=== PATIENT | female | born 1945 | race Caucasian/White ===

== ENCOUNTER 2017-12-10 08:15 | Day surgery (SDC) | payer MEDICARE, BC ==
[~2017-12-10] VITALS: Ht 160 cm; Wt 72.8 kg
[2017-12-10] VITALS (14 sets, daily range): BP systolic 109–147; BP diastolic 57–84
[~2017-12-10 08:15] MED LIST: ATOR20TA PO; ESOM40CA30 PO; FLUO20CA39 PO; FLUT1DIS INH; FOLI1TAB16 PO; OXYC-145 PO; SYN0.112T PO; VITAMIN B12 COMPLEX PO
[2017-12-10 08:57] LABS: BASOPHILS % (AUTO) 0.4 % (0-1); EOSINOPHILS # (AUTO) 0.2 X10'3 (0-0.9); EOSINOPHILS % (AUTO) 3.2 % (0-6); HEMATOCRIT 39.9 % (35.0-45.0); HEMOGLOBIN 13.6 g/dl (12.0-16.0); LYMPHOCYTES # (AUTO) 1.3 X10'3 (1.1-4.8); LYMPHOCYTES % (AUTO) 17.8 % (21-51); MEAN CORPUSCULAR HEMOGLOBIN 32.1 PG (27.0-31.0); MEAN CORPUSCULAR HGB CONC 34.2 % (33.0-36.5); MONOCYTES # (AUTO) 0.5 X10'3 (0-0.9); MONOCYTES % (AUTO) 7.4 % (2-12); NEUTROPHILS # (AUTO) 5.3 X10'3 (1.8-7.7); NEUTROPHILS % (AUTO) 71.2 % (42-75); PLATELET COUNT 265 X10'3 (140-440); RED BLOOD COUNT 4.25 X10'6 (4.20-5.60); RED CELL DISTRIBUTION WIDTH 17.3 % (11.5-14.5); WHITE BLOOD COUNT 7.4 X10'3 (4.5-11.0)
[2017-12-10 09:07] LABS: ALBUMIN 2.9 G/DL (3.4-5.0); ANION GAP 7 (8-16); BLOOD UREA NITROGEN 15 MG/DL (7-18); BUN/CREATININE RATIO 14.7 (6.6-38.0); CALCIUM 8.3 MG/DL (8.5-10.1); CHLORIDE 101 MMOL/L (99-107); CREATININE 1.02 MG/DL (0.40-0.90); GLUCOSE 101 MG/DL (70-104); INR 0.9 INR; POTASSIUM 4.1 MMOL/L (3.5-5.1); PROTHROMBIN TIME 9.7 SECONDS (9.0-12.0); SODIUM 136 MMOL/L (135-145); TOTAL CARBON DIOXIDE 28.2 MMOL/L (24-32); eGFR 54 ML/MIN
[2017-12-10] MEDS ORDERED: ALBU8HFA PO (09:34)
[2017-12-10] MEDS ORDERED: midazolam 2 mg/2 ml injection IV PRN (09:35)
[2017-12-10] MEDS ORDERED: LIDOcaine 1%/PF 5ML 10 MG/ML VIAL SQ ONE (09:35)
[2017-12-10] MEDS ORDERED: fentaNYL/PF 50MCG/1 ML 2ML syringe IV PRN (09:35)
[2017-12-10] MEDS ORDERED: LIDOcaine 1%/PF 5ML 10 MG/ML VIAL ONE (09:47)
[2017-12-10] MEDS ORDERED: fentaNYL/PF 50MCG/1 ML 2ML syringe ONE (09:56)
[2017-12-10] MEDS ORDERED: midazolam 2 mg/2 ml injection ONE (09:56)
== END 2017-12-10 12:35 | disposition home or self-care (01) ==
LOC: SSTAY O 08:15
PROVIDERS: ATTEND Radiology Diagnostic Radiology
DX: R91.1 Solitary pulmonary nodule (principal); J44.9 Chronic obstructive pulmonary disease, unspecified; E03.9 Hypothyroidism, unspecified; K21.9 Gastro-esophageal reflux disease without esophagitis; F17.210 Nicotine dependence, cigarettes, uncomplicated; Z96.651 Presence of right artificial knee joint; Z90.710 Acquired absence of both cervix and uterus; Z92.21 Personal history of antineoplastic chemotherapy; Z92.3 Personal history of irradiation; Z87.440 Personal history of urinary (tract) infections; Z85.118 Personal history of other malignant neoplasm of bronchus and lung; Z88.5 Allergy status to narcotic agent; Z88.6 Allergy status to analgesic agent; Z79.891 Long term (current) use of opiate analgesic; Z88.8 Allergy status to other drugs, medicaments and biological substances; Z90.49 Acquired absence of other specified parts of digestive tract; Z98.890 Other specified postprocedural states; Z79.899 Other long term (current) drug therapy; Z82.49 Family history of ischemic heart disease and other diseases of the circulatory system; Z83.3 Family history of diabetes mellitus
CPT/HCPCS: 32405; 36415; 71045; 77012; 80048; 85025; 85610; 99152; 99153; J2250; J3010; J7030; J2001

== ENCOUNTER 2018-01-28 08:18 | Day surgery (SDC) | payer MEDICARE, BC ==
[2018-01-28] VITALS (16 sets, daily range): BP systolic 102–141; BP diastolic 60–91
[~2018-01-28] VITALS: Ht 160 cm; Wt 71.4 kg
[~2018-01-28 08:18] MED LIST changes: +ALBU8HFA PO; -ATOR20TA PO; -FOLI1TAB16 PO; -VITAMIN B12 COMPLEX PO
[2018-01-28] MEDS ORDERED: normal saline 1000ml 1,000 ML IV SCH (08:40)
[2018-01-28] MEDS ORDERED: PROC10TA10 PO (09:43)
[2018-01-28] MEDS ORDERED: OXYC30TA85 PO (09:43)
[2018-01-28] MEDS ORDERED: OMEP20CA10 PO (09:43)
[2018-01-28] MEDS ORDERED: LORA0.5T PO (09:44)
[2018-01-28] MEDS ORDERED: LIDOcaine 1%/PF 5ML 10 MG/ML VIAL SQ ONE (09:45)
[2018-01-28] MEDS ORDERED: midazolam 2 mg/2 ml injection IV PRN (09:45)
[2018-01-28] MEDS ORDERED: fentaNYL/PF 50MCG/1 ML 2ML syringe IV PRN (09:45)
[2018-01-28 09:48] LABS: BASOPHILS # (AUTO) 0.1 X10'3 (0-0.2); BASOPHILS % (AUTO) 1.4 % (0-1); EOSINOPHILS # (AUTO) 0.2 X10'3 (0-0.9); LYMPHOCYTES # (AUTO) 1.5 X10'3 (1.1-4.8); LYMPHOCYTES % (AUTO) 23.3 % (21-51); MEAN CORPUSCULAR HEMOGLOBIN 31.5 PG (27.0-31.0); MEAN CORPUSCULAR HGB CONC 32.7 % (33.0-36.5); MEAN CORPUSCULAR VOLUME 96.3 FL (78-98); MEAN PLATELET VOLUME 8.1 FL (7.4-10.4); MONOCYTES # (AUTO) 0.5 X10'3 (0-0.9); MONOCYTES % (AUTO) 7.3 % (2-12); NEUTROPHILS # (AUTO) 4.2 X10'3 (1.8-7.7); PRE OP HEMATOCRIT 44.5 % (35.0-45.0); PRE OP HEMOGLOBIN 14.5 g/dL (12.0-16.0); PRE OP PLATELET COUNT 263 X10'3 (140-440); RED BLOOD COUNT 4.62 X10'6 (4.20-5.60); RED CELL DISTRIBUTION WIDTH 16.2 % (11.5-14.5)
[2018-01-28 09:55] LABS: ALBUMIN 3.6 G/DL (3.4-5.0); ANION GAP 7 (8-16); BLOOD UREA NITROGEN 14 MG/DL (7-18); BUN/CREATININE RATIO 15.9 (6.6-38.0); CALCIUM 8.6 MG/DL (8.5-10.1); CHLORIDE 100 MMOL/L (99-107); CREATININE 0.88 MG/DL (0.40-0.90); GLUCOSE 88 MG/DL (70-104); POTASSIUM 3.9 MMOL/L (3.5-5.1); SODIUM 136 MMOL/L (135-145); TOTAL CARBON DIOXIDE 28.7 MMOL/L (24-32); eGFR 64 ML/MIN
[2018-01-28] MEDS ORDERED: fentaNYL/PF 50MCG/1 ML 2ML syringe ONE ×2 (10:17→10:50)
[2018-01-28] MEDS ORDERED: midazolam 2 mg/2 ml injection ONE (10:17)
[2018-01-28] MEDS ORDERED: LIDOcaine 1% (10mg/ml) 2ml vial ONE (10:18)
== END 2018-01-28 13:30 | disposition home or self-care (01) ==
LOC: SSTAY O 08:18
PROVIDERS: ATTEND Radiology Diagnostic Radiology
DX: J84.10 Pulmonary fibrosis, unspecified (principal); J43.9 Emphysema, unspecified; G47.33 Obstructive sleep apnea (adult) (pediatric); E78.5 Hyperlipidemia, unspecified; F32.9 Major depressive disorder, single episode, unspecified; F41.8 Other specified anxiety disorders; G89.29 Other chronic pain; I25.10 Atherosclerotic heart disease of native coronary artery without angina pectoris; F17.210 Nicotine dependence, cigarettes, uncomplicated; K21.9 Gastro-esophageal reflux disease without esophagitis; M19.90 Unspecified osteoarthritis, unspecified site; M81.0 Age-related osteoporosis without current pathological fracture; E89.0 Postprocedural hypothyroidism; Z87.440 Personal history of urinary (tract) infections; Z87.01 Personal history of pneumonia (recurrent); Z96.651 Presence of right artificial knee joint; Z90.710 Acquired absence of both cervix and uterus; Z85.118 Personal history of other malignant neoplasm of bronchus and lung; Z92.21 Personal history of antineoplastic chemotherapy; Z92.3 Personal history of irradiation; Z90.49 Acquired absence of other specified parts of digestive tract; Z88.5 Allergy status to narcotic agent; Z88.6 Allergy status to analgesic agent; Z79.891 Long term (current) use of opiate analgesic; Z88.8 Allergy status to other drugs, medicaments and biological substances; Z98.890 Other specified postprocedural states; Z79.899 Other long term (current) drug therapy; Z82.49 Family history of ischemic heart disease and other diseases of the circulatory system; Z83.3 Family history of diabetes mellitus
CPT/HCPCS: 32405; 36415; 71045; 77012; 80048; 85025; 99152; 99153; J2250; J3010; J3490; J7030

== ENCOUNTER 2018-05-04 11:31 | Inpatient (IN) | payer MEDICARE, BC ==
[~2018-05-04] VITALS: Ht 157.5 cm; Wt 67.7 kg
[~2018-05-04 11:31] MED LIST changes: -ESOM40CA30 PO; +LORA0.5T PO; +OMEP20CA10 PO; -OXYC-145 PO; +OXYC30TA85 PO; +PROC10TA10 PO
[2018-05-04] MEDS ORDERED: normal saline 1000ML IV soln IVB ONE (12:10)
[2018-05-04] MEDS ORDERED: ondansetron/PF 4mg/2ml inj IV ONE (12:10)
[2018-05-04] MEDS ORDERED: HYDROmorphone 1 mg/ml syringe IV ONE ×2 (12:10→19:20)
[2018-05-04 12:37] LABS: BASOPHILS % (AUTO) 0.2 % (0-1); EOSINOPHILS % (AUTO) 0.1 % (0-6); HEMATOCRIT 47.2 % (35.0-45.0); HEMOGLOBIN 15.8 g/dl (12.0-16.0); LYMPHOCYTES # (AUTO) 0.9 X10'3 (1.1-4.8); LYMPHOCYTES % (AUTO) 9.5 % (21-51); MEAN CORPUSCULAR HEMOGLOBIN 32.5 PG (27.0-31.0); MEAN CORPUSCULAR HGB CONC 33.5 g/dL (33.0-36.5); MEAN CORPUSCULAR VOLUME 96.9 FL (78-98); MEAN PLATELET VOLUME 7.8 FL (7.4-10.4); MONOCYTES # (AUTO) 0.5 X10'3 (0-0.9); MONOCYTES % (AUTO) 4.6 % (2-12); NEUTROPHILS # (AUTO) 8.5 X10'3 (1.8-7.7); NEUTROPHILS % (AUTO) 85.6 % (42-75); PLATELET COUNT 261 X10'3 (140-440); RED BLOOD COUNT 4.87 X10'6 (4.20-5.60); RED CELL DISTRIBUTION WIDTH 15.1 % (11.5-14.5); WHITE BLOOD COUNT 9.9 X10'3 (4.5-11.0)
[2018-05-04 12:51] LABS: ALANINE AMINOTRANSFERASE 19 U/L (12-78); ALBUMIN 3.7 G/DL (3.4-5.0); ALBUMIN/GLOBULIN RATIO 1.1 (1.1-1.5); ALKALINE PHOSPHATASE 88 IU/L (46-116); ANION GAP 12 (8-16); ASPARTATE AMINO TRANSFERASE 11 U/L (10-37); BILIRUBIN,TOTAL 0.4 MG/DL (0.1-1.0); BLOOD UREA NITROGEN 15 MG/DL (7-18); BUN/CREATININE RATIO 16.1 (6.6-38.0); CALCIUM 8.5 MG/DL (8.5-10.1); CHLORIDE 100 MMOL/L (99-107); CREATININE 0.93 MG/DL (0.40-0.90); GLUCOSE 93 MG/DL (70-104); SODIUM 137 MMOL/L (135-145); TOTAL CARBON DIOXIDE 24.6 MMOL/L (24-32); TOTAL PROTEIN 7.2 G/DL (6.4-8.2); eGFR 60 ML/MIN
[2018-05-04 12:54] LABS: PARTIAL THROMBOPLASTIN TIME 29 SECONDS (22-32); PROTHROMBIN TIME 9.8 SECONDS (9.0-12.0)
[2018-05-04] MEDS ORDERED: LORazepam 2 mg/ml vial IV ONE ×2 (13:20→20:45)
[2018-05-04] MEDS ORDERED: HYDROmorphone inj. 0.5 MG/0.5 ML DISP.SYRIN IV ONE ×2 (13:20→17:15)
--- NOTE | 2018-05-04 15:51 | NUR ---
Manuela RN: patient in MRI
[2018-05-04] MEDS ORDERED: levetiracetam inj 500 MG in normal saline 100ml IV soln 95 ML IV ONE (15:55)
[2018-05-04] MEDS ORDERED: gadopentetate dimeglumine 5 mmol/10ml vial IV ONE (16:30)
[2018-05-04] MEDS ORDERED: dexamethasone sod phosphate 10mg/ml inj IV STA (18:25)
[2018-05-04] MEDS ORDERED: fentaNYL/PF 50MCG/1 ML 2ML syringe IV ONE (18:30)
[2018-05-04] MEDS ORDERED: levetiracetam inj 500 MG in normal saline 100ml IV soln 95 ML IV SCH (20:00)
[2018-05-04] MEDS ORDERED: ATOR20TA PO (20:49)
[2018-05-04] MEDS ORDERED: DEXA4TAB68 PO (20:49)
[2018-05-04] MEDS ORDERED: PROC10TA10 PO (20:49)
[2018-05-04] MEDS ORDERED: PARO20TA6 PO (20:49)
[2018-05-04] MEDS ORDERED: mag hydrox/Alum hydrox/simeth 30ml oral suspension PO PRN (21:25)
[2018-05-04] MEDS ORDERED: acetaminophen 325mg tablet PO PRN (21:25)
[2018-05-04] MEDS ORDERED: ondansetron/PF 4mg/2ml inj IV PRN (21:25)
[2018-05-04] MEDS ORDERED: magnesium hydroxide 30ml (MOM) UD suspension PO PRN (21:25)
[2018-05-04] MEDS ORDERED: SALMETEROL INH PRN (21:35)
[2018-05-04] MEDS ORDERED: FLUTICASONE INH PRN (21:35)
[2018-05-04] MEDS: normal saline 1000ml 1,000 ML IV SCH (21:39)
--- NOTE | 2018-05-04 22:20 | NUR ---
Received report from CARDING DOUBLERTAYLER Mays. Patient to follow shortly.
[2018-05-04 22:25] VITALS: BP 153/97
--- NOTE | 2018-05-04 22:25 | NUR ---
Patient arrived to floor via gurney from ER accompanied by her Serafin and son Mirza. Patient assisted to bathroom ([id number]) to void. All admit questions completed with family at bedside - pt. very drowsy & MRSA swab completed.
[2018-05-05] MEDS ORDERED: morphine 2 MG/ML inj. syringe IV PRN (00:35)
[2018-05-05] MEDS ORDERED: HYDROcodone/acetaminophen 5mg/325mg tablet PO PRN (00:35)
[2018-05-05] MEDS: proCHLORperazine 10mg tablet PO SCH ×2 (02:05→07:18)
[2018-05-05] MEDS: dexamethasone sod phosphate 10mg/ml inj IV SCH ×2 (02:05→07:23)
[2018-05-05] MEDS: HYDROcodone/acetaminophen 5mg/325mg tablet PO PRN ×2 (02:13→07:21)
[2018-05-05] MEDS ORDERED: albuterol 2.5 MG/3 ML nebule NEB SCH (03:00)
[2018-05-05 05:00] VITALS: BP 128/83
--- NOTE | 2018-05-05 05:30 | NUR ---
Patients PIV being temperamental - fixed once by pulling away from valve and re-tegadermed. However at 02.30 turned IV off as patient had woken up and was crying moving arms and stating having pain an feeling anxious. medicated patient and decide better to let rest. Patient now awake drinking coffee. When explained that we should start another IV due anticubital position, Pt. very politely refused stating " I might be going home today". Advised patient to drink plenty of fluids.
[2018-05-05 06:13] LABS: BASOPHILS % (AUTO) 0 % (0-1); EOSINOPHILS % (AUTO) 0 % (0-6); HEMATOCRIT 44.6 % (35.0-45.0); LYMPHOCYTES # (AUTO) 0.7 X10'3 (1.1-4.8); LYMPHOCYTES % (AUTO) 9.4 % (21-51); MEAN CORPUSCULAR HEMOGLOBIN 32.4 PG (27.0-31.0); MEAN CORPUSCULAR HGB CONC 33.6 g/dL (33.0-36.5); MEAN CORPUSCULAR VOLUME 96.3 FL (78-98); MEAN PLATELET VOLUME 8.1 FL (7.4-10.4); MONOCYTES # (AUTO) 0.1 X10'3 (0-0.9); MONOCYTES % (AUTO) 1.8 % (2-12); NEUTROPHILS # (AUTO) 6.9 X10'3 (1.8-7.7); NEUTROPHILS % (AUTO) 88.8 % (42-75); PLATELET COUNT 263 X10'3 (140-440); RED BLOOD COUNT 4.63 X10'6 (4.20-5.60); WHITE BLOOD COUNT 7.8 X10'3 (4.5-11.0)
[2018-05-05 06:19] LABS: ALBUMIN 3.2 G/DL (3.4-5.0); ANION GAP 10 (8-16); BLOOD UREA NITROGEN 15 MG/DL (7-18); BUN/CREATININE RATIO 17.9 (6.6-38.0); CALCIUM 8.7 MG/DL (8.5-10.1); CHLORIDE 99 MMOL/L (99-107); CREATININE 0.84 MG/DL (0.40-0.90); GLUCOSE 108 MG/DL (70-104); POTASSIUM 3.7 MMOL/L (3.5-5.1); SODIUM 136 MMOL/L (135-145); TOTAL CARBON DIOXIDE 26.7 MMOL/L (24-32); eGFR 67 ML/MIN
--- NOTE | 2018-05-05 06:42 | NUR ---
Problems reprioritized. Patient report given, questions answered & plan of care reviewed with Patricia Borjas.
[2018-05-05] MEDS: normal saline 1000ml 1,000 ML IV SCH (07:24)
[2018-05-05] MEDS ORDERED: levoTHYROXINE 112mcg tablet PO SCH (07:30)
[2018-05-05 07:50] VITALS: BP 153/95
[2018-05-05] MEDS ORDERED: BUDESONIDE 0.25 MG/2 ML AMPUL.NEB IH SCH (08:00)
[2018-05-05] MEDS ORDERED: LORazepam 0.5 MG tablet PO SCH (08:00)
[2018-05-05] MEDS ORDERED: PARoxetine 20mg tablet PO SCH (08:00)
[2018-05-05] MEDS ORDERED: atorvastatin 20mg tablet PO SCH (08:00)
[2018-05-05] MEDS ORDERED: levetiracetam 250mg tablet PO SCH (08:00)
[2018-05-05] MEDS ORDERED: HYDR-3973 (09:52)
[2018-05-05 11:13] VITALS: BP 125/77
[2018-05-05] MEDS ORDERED: LEVE250T PO (11:53)
[2018-05-05] MEDS ORDERED: DEXA4TAB PO (11:53)
--- NOTE | 2018-05-05 13:08 | NUR ---
Patient discharged home with . Stable able appropriate. Discharge education given and understood by patient and spouse. IV removed. All belongings taken from room. Medications delivered via [facility].
[2018-05-05] MEDS ORDERED: pantoprazole 40mg Tablet.DR PO SCH (21:00)
== END 2018-05-05 13:05 | disposition home or self-care (01) | DRG 101 ==
LOC: ER 11:31 → ED HOLD 21:24 → SUR 3N 22:20 → CMPBEDREQ 23:17
PROVIDERS: ADMIT Internal Medicine; ATTEND Family Medicine
DX: G40.89 Other seizures (principal); C79.31 Secondary malignant neoplasm of brain; E03.9 Hypothyroidism, unspecified; E78.00 Pure hypercholesterolemia, unspecified; E78.5 Hyperlipidemia, unspecified; F32.9 Major depressive disorder, single episode, unspecified; G89.29 Other chronic pain; K21.9 Gastro-esophageal reflux disease without esophagitis; M19.90 Unspecified osteoarthritis, unspecified site; M54.2 Cervicalgia; R51 Headache; M54.9 Dorsalgia, unspecified; Z90.49 Acquired absence of other specified parts of digestive tract; Z90.710 Acquired absence of both cervix and uterus; Z88.5 Allergy status to narcotic agent; Z79.899 Other long term (current) drug therapy; Z79.51 Long term (current) use of inhaled steroids; Z85.038 Personal history of other malignant neoplasm of large intestine; Z85.118 Personal history of other malignant neoplasm of bronchus and lung; Z87.891 Personal history of nicotine dependence; Z92.21 Personal history of antineoplastic chemotherapy; Z92.3 Personal history of irradiation; Z82.49 Family history of ischemic heart disease and other diseases of the circulatory system; Z80.1 Family history of malignant neoplasm of trachea, bronchus and lung; Z83.3 Family history of diabetes mellitus
CPT/HCPCS: 36415; 70543; 70544; 70553; 80048; 80053; 85025; 85610; 85730; 87070; 94640; 94760; 96360; 96365; 96366; 96375; 96376; 99285; A9579; G0378; J1100; J1170; J1953; J2060; J2270; J2405; J3010; J7030; Q0164